=== PATIENT | male | born 1970 | race Caucasian/White ===

== ENCOUNTER → 2016-08-21 | Outpatient (CLI) | payer BC ==
[~2016-08-21] VITALS: Ht 193 cm; Wt 156.5 kg
[~2016-08-21] MED LIST: ALTACE10 MG PO; IBUPROFEN200 M1 PO; LIPITOR40 MG PO
== END | disposition home or self-care (01) ==
LOC: AMB 10:19
DX: D12.4 Benign neoplasm of descending colon (principal); D12.3 Benign neoplasm of transverse colon; D12.8 Benign neoplasm of rectum; I10 Essential (primary) hypertension; E78.00 Pure hypercholesterolemia, unspecified
CPT/HCPCS: 88305; 93005; J2250

== ENCOUNTER 2017-01-11 12:09 | Emergency (ER) | payer BC ==
[~2017-01-11] VITALS: Ht 193 cm; Wt 167.0 kg
[~2017-01-11 12:09] MED LIST changes: +TYLENOL REGULA325 MG PO
[2017-01-11] MEDS ORDERED: BENADRYL50 MG PO (13:40)
[2017-01-11] MEDS ORDERED: PREDNISONE10 MG PO (13:40)
[2017-01-11 13:53] VITALS: BP 134/90
== END 2017-01-11 13:53 | disposition home or self-care (01) ==
LOC: EME 12:09
DX: R21 Rash and other nonspecific skin eruption (principal); T36.3X5A Adverse effect of macrolides, initial encounter; T36.0X5A Adverse effect of penicillins, initial encounter; I10 Essential (primary) hypertension; K21.9 Gastro-esophageal reflux disease without esophagitis
CPT/HCPCS: 99281; 99283

== ENCOUNTER → 2017-02-05 | Outpatient (CLI) | payer BC ==
[~2017-02-05] MED LIST changes: +BENADRYL50 MG PO; +COLACE100 MG PO; +LMX 430 GM TP; +PERCOCET 5/31 TABLET PO; +PREDNISONE10 MG PO
== END | disposition home or self-care (01) ==
LOC: CDC 08:18
DX: Z01.810 Encounter for preprocedural cardiovascular examination (principal); K64.4 Residual hemorrhoidal skin tags
CPT/HCPCS: 93000

== ENCOUNTER 2017-02-10 08:29 | Day surgery (SDC) | payer BC ==
[~2017-02-10] VITALS: Ht 193 cm; Wt 161.0 kg
[~2017-02-10 08:29] MED LIST changes: -COLACE100 MG PO; -LMX 430 GM TP; -PERCOCET 5/31 TABLET PO
[2017-02-10 09:01] VITALS: BP 140/83
[2017-02-10] MEDS ORDERED: LMX 430 GM TP (11:30)
[2017-02-10] MEDS ORDERED: PERCOCET 5/31 TABLET PO (11:30)
[2017-02-10] MEDS ORDERED: COLACE100 MG PO (11:30)
[2017-02-10 12:19] VITALS: BP 115/65
[2017-02-10 13:10] VITALS: BP 120/70
== END 2017-02-10 13:27 | disposition home or self-care (01) ==
LOC: SDC
PROC: 06BY0ZC Excision of Hemorrhoidal Plexus, Open Approach (ICD-10-PCS; principal; 2017-02-10)
DX: K64.8 Other hemorrhoids (principal); K64.4 Residual hemorrhoidal skin tags; K29.70 Gastritis, unspecified, without bleeding; I10 Essential (primary) hypertension; E78.00 Pure hypercholesterolemia, unspecified; G47.30 Sleep apnea, unspecified; Z88.0 Allergy status to penicillin
CPT/HCPCS: 88304; J0131; J1170; J1580; J1885; J2250; J2405; J3010; J7050; J7120; S0030

== ENCOUNTER → 2017-05-13 | Outpatient (CLI) | payer BC ==
[~2017-05-13] VITALS: Ht 193 cm; Wt 161.1 kg
[~2017-05-13] MED LIST changes: +COLACE100 MG PO; +LMX 430 GM TP; +PERCOCET 5/31 TABLET PO; +PROTONIX40 MG PO
== END | disposition home or self-care (01) ==
LOC: AMB 11:30
PROC: 0DJ08ZZ Inspection of Upper Intestinal Tract, Via Natural or Artificial Opening Endoscopic (ICD-10-PCS; principal; 2017-05-13)
DX: K44.9 Diaphragmatic hernia without obstruction or gangrene (principal); Z87.11 Personal history of peptic ulcer disease; Z87.19 Personal history of other diseases of the digestive system; E66.01 Morbid (severe) obesity due to excess calories; G47.33 Obstructive sleep apnea (adult) (pediatric); I10 Essential (primary) hypertension; E78.5 Hyperlipidemia, unspecified; K21.9 Gastro-esophageal reflux disease without esophagitis
CPT/HCPCS: J2250